=== PATIENT | female | born 1995 | race African-American/Black ===

== ENCOUNTER 2017-09-21 08:21 | Inpatient (IN) ==
[2017-09-21] MEDS ORDERED: ONDANSETRON 4 MG/2 ML VIAL IV PRN ×2 (10:02→17:58)
[2017-09-21] MEDS ORDERED: OXYTOCIN/LR 20 UNIT/1,000 ML BAG IV SCH (10:30)
[2017-09-21] MEDS ORDERED: DEXTROSE 5% LACTATED RINGERS 1,000 ML IV SCH (10:30)
[2017-09-21] MEDS ORDERED: DEXTROSE 50% 25 GM/50 ML VIAL IV PRN ×2 (10:35→17:58)
[2017-09-21] MEDS ORDERED: GLUCAGON 1 MG VIAL IM PRN ×2 (10:35→17:58)
[2017-09-21] MEDS ORDERED: ONDANSETRON 4 MG/2 ML VIAL IV ONE (10:49)
[2017-09-21] MEDS ORDERED: ePHEDrine 50 MG/ML AMP IV PRN (10:49)
[2017-09-21] MEDS ORDERED: PROMETHAZINE 25 MG/1 ML VIAL IM ONE (10:49)
[2017-09-21] MEDS ORDERED: FAMOTIDINE 20 MG/2 ML VIAL IV ONE (10:49)
[2017-09-21] MEDS ORDERED: CITRIC ACID/SODIUM CITRATE 30 ML UDCUP PO ONE (10:49)
[2017-09-21] MEDS ORDERED: diphenhydrAMINE 50 MG/1 ML VIAL IV PRN ×2 (10:49)
[2017-09-21] MEDS ORDERED: hydrOXYzine HCL 25 MG/1 ML VIAL IM PRN (10:49)
[2017-09-21 10:57] LABS: Basophils % 0.2 % (0.0-0.8); Eosinophils # 0.1 10*3/uL (0.0-0.87); Eosinophils % 1.1 % (0.00-10.9); Hematocrit 34.5 VOL% (35.7-47.0); Hemoglobin 11.5 GM/DL (12.0-16.0); Immature Granulocytes % 0.8 %; Immature Granulocytes Absolute 0.08 #; Lymphocytes # 1.9 10*3/uL (1.4-4.0); Lymphocytes % 19.2 % (21.3-54.2); Mean Corpuscular HGB Conc 33.3 GM/DL (32-36); Mean Corpuscular Hemoglobin 29 PG (27-34); Mean Platelet Volume 12.5 FL (9.6-12.0); Monocytes # 0.8 10*3/uL (0.11-0.8); Monocytes % 7.9 % (1.7-12.7); NRBC # 0.02 10*3/uL; Neutrophils % 70.8 % (38.7-73.9); Platelet Count 169 T/CUMM (130-400); Red Blood Count 3.92 MC/CUMM (3.8-5.5); Red Cell Distribution Width 15.1 % (9.3-17.3); White Blood Count 9.9 T/CUMM (4-12)
[2017-09-21] MEDS ORDERED: INSULIN REGULAR 100 UNIT/ML SUBCUT SCH ×2 (11:00→18:30)
[2017-09-21] MEDS ORDERED: fentaNYL 2 MCG/ROPIV 0.2% EPID 150 ML EPIDURAL SCH (11:00)
[2017-09-21 11:17] LABS: Alanine Aminotransferase 13 U/L (13-56); Albumin 2.4 G/DL (3.4-5.0); Alkaline Phosphatase 263 U/L (45-117); Aspartate Amino Transferase 14 U/L (0-37); Bilirubin,Total < 0.39 MG/DL (0.2-1.0); Blood Urea Nitrogen 4 MG/DL (7-18); Calcium 8.4 MG/DL (8.5-10.1); Glucose 152 MG/DL (74-106); Osmolality,Calculated 274.7 MOS/KG (273-304); Potassium 3.9 MMOL/L (3.5-5.1); Sodium 138 MMOL/L (136-145); Total Protein 6.5 G/DL (6.4-8.3)
[2017-09-21] MEDS: LACTATED RINGERS 1,000 ML IV SCH ×2 (11:25→15:10)
[2017-09-21] MEDS ORDERED: LIDOCAINE MPF 2% /EPI 20 ML VIAL ONE (12:06)
[2017-09-21 15:27] LABS: Apearance,Urine CLEAR (Clear); Bacteria,Urine Occasional /HPF (Few); Bilirubin,Urine Negative (Negative); Blood, Urine Negative (Negative); Glucose,Urine (UA) >=500 mg/dL (Negative); Ketones,Urine Negative (Negative); Nitrite,Urine Negative (Negative); Protein,Urine Negative; Urine Color Straw (Yellow); Urine Specific Gravity 1.001 (1.001-1.035); Urine Urobilinogen < 2.0 EU/DL (0.2-1.0); WBC,Urine <1 /HPF (0-6)
[2017-09-21] MEDS ORDERED: miSOPROStol 200 MCG TABLET ONE (15:52)
[2017-09-21] MEDS ORDERED: LIDOCAINE 1% 50 ML VIAL ONE (15:53)
[2017-09-21] MEDS ORDERED: CARBOPROST TROMETHAMINE 250 MCG/ML AMP IM ONE (15:54)
[2017-09-21] MEDS ORDERED: BUTORPHANOL 2 MG/ML VIAL ONE (15:54)
[2017-09-21] MEDS ORDERED: METHYLERGONOVINE 0.2 MG/1 ML AMP ONE (15:54)
[2017-09-21] MEDS ORDERED: BENZOCAINE 20%/MENTHOL 0.5% SPRAY 56 GM CAN TOP PRN (17:58)
[2017-09-21] MEDS ORDERED: HYDROCORTISONE 2.5% RECTAL CREAM 30 GM TUBE TOP PRN (17:58)
[2017-09-21] MEDS ORDERED: ACETAMINOPHEN 325 MG TABLET PO PRN (17:58)
[2017-09-21] MEDS ORDERED: DIPH/TET/ACEL PERT BOOSTER VACCINE 0.5 ML VIAL IM ONE (17:58)
[2017-09-21] MEDS ORDERED: MEASLES/MUMPS/RUBELLA VACCINE 0.5 ML VIAL SUBCUT ONE (17:58)
[2017-09-21] MEDS ORDERED: OXYTOCIN/LR 20 UNIT/1,000 ML BAG IV ONE (17:58)
[2017-09-21] MEDS ORDERED: RHO(D) IMMUNE GLOBULIN 300 MCG SYRINGE IM ONE (17:58)
[2017-09-21] MEDS ORDERED: WITCH HAZEL PADS 100/JAR TOP PRN (17:58)
[2017-09-21] MEDS ORDERED: BISACODYL 10 MG SUPP RECTAL PRN (17:58)
[2017-09-21] MEDS ORDERED: LANOLIN 50% CREAM 0.3 OZ TUBE TOP PRN (17:58)
[2017-09-21] MEDS: IBUPROFEN 800 MG TABLET PO PRN (19:27)
[2017-09-21] MEDS ORDERED: hydrALAZINE 20 MG/1 ML VIAL ONE (19:40)
[2017-09-21] MEDS ORDERED: hydrALAZINE 20 MG/1 ML VIAL IV ONE ×2 (19:44→19:54)
[2017-09-21] MEDS ORDERED: BENZOCAINE/MENTHOL LOZENGE 18/BOX PO PRN (21:33)
[2017-09-21] MEDS: oxyCODONE/ACETAMINOPHEN 5-325 MG TABLET PO PRN (21:50)
[2017-09-21] MEDS: DOCUSATE SODIUM 100 MG CAPSULE PO SCH (21:50)
[2017-09-21] MEDS ORDERED: hydrALAZINE 20 MG/1 ML VIAL IV PRN (23:59)
[2017-09-22 03:46] LABS: Basophils % 0.1 % (0.0-0.8); Eosinophils # 0.1 10*3/uL (0.0-0.87); Eosinophils % 0.5 % (0.00-10.9); Hematocrit 27.8 VOL% (35.7-47.0); Hemoglobin 9.3 GM/DL (12.0-16.0); Immature Granulocytes % 0.5 %; Immature Granulocytes Absolute 0.08 #; Lymphocytes % 13.6 % (21.3-54.2); Mean Corpuscular HGB Conc 33.5 GM/DL (32-36); Mean Corpuscular Hemoglobin 30 PG (27-34); Mean Corpuscular Volume 90.6 FL (87-102); Mean Platelet Volume 13.1 FL (9.6-12.0); Monocytes # 1.1 10*3/uL (0.11-0.8); Monocytes % 7.6 % (1.7-12.7); Neutrophils # 11.6 10*3/uL (1.4-7.4); Neutrophils % 77.7 % (38.7-73.9); Platelet Count 145 T/CUMM (130-400); Red Blood Count 3.07 MC/CUMM (3.8-5.5); Red Cell Distribution Width 15.2 % (9.3-17.3); White Blood Count 14.9 T/CUMM (4-12)
[2017-09-22] MEDS: INSULIN REGULAR 100 UNIT/ML SUBCUT SCH ×4 (04:00→22:17)
[2017-09-22] MEDS: IBUPROFEN 800 MG TABLET PO PRN ×2 (04:32→22:15)
[2017-09-22] MEDS: oxyCODONE/ACETAMINOPHEN 5-325 MG TABLET PO PRN ×3 (04:32→22:16)
[2017-09-22] MEDS: DOCUSATE SODIUM 100 MG CAPSULE PO SCH ×2 (17:17→22:14)
[2017-09-23] MEDS: oxyCODONE/ACETAMINOPHEN 5-325 MG TABLET PO PRN ×2 (04:52→14:22)
[2017-09-23] MEDS: IBUPROFEN 800 MG TABLET PO PRN ×2 (04:52→14:23)
[2017-09-23 07:46] VITALS: BP 141/85
[2017-09-23] MEDS ORDERED: metFORMIN 500 MG TABLET PO SCH (08:00)
[2017-09-23] MEDS: DOCUSATE SODIUM 100 MG CAPSULE PO SCH (08:20)
== END 2017-09-23 15:30 | disposition home or self-care (01) | DRG 560 ==
LOC: N.LDOUT 08:21 → N.LD 08:23 → N.OB 21:10
PROVIDERS: ADMIT Obstetrics & Gynecology; ATTEND Obstetrics & Gynecology

== ENCOUNTER 2020-10-14 10:26 | Inpatient (IN) ==
[2020-10-14] MEDS ORDERED: ceFAZolin 2,000 MG/50 ML DUPLEX IV ONE (10:41)
[2020-10-14] MEDS ORDERED: CITRIC ACID/SODIUM CITRATE 30 ML UDCUP PO ONE (10:41)
[2020-10-14] MEDS ORDERED: FAMOTIDINE 20 MG/2 ML VIAL IV ONE (10:41)
[2020-10-14] MEDS ORDERED: OXYTOCIN/LR 30 UNIT/1,000 ML BAG IV ONE (10:43)
[2020-10-14] MEDS ORDERED: OXYTOCIN 10 UNIT/ML VIAL IM ONE (10:43)
[2020-10-14] MEDS ORDERED: LACTATED RINGERS 1,000 ML IV SCH ×2 (11:00→15:00)
[2020-10-14 11:03] LABS: Basophils % 0.3 % (0.0-0.8); Eosinophils # 0.1 10*3/uL (0.0-0.87); Eosinophils % 0.6 % (0.00-10.9); Hematocrit 35.5 VOL% (35.7-47.0); Hemoglobin 11.4 GM/DL (12.0-16.0); Immature Granulocytes % 1.2 %; Immature Granulocytes Absolute 0.14 #; Lymphocytes # 2.6 10*3/uL (1.4-4.0); Lymphocytes % 22.5 % (21.3-54.2); Mean Corpuscular HGB Conc 32.1 GM/DL (32-36); Mean Corpuscular Volume 88.1 FL (87-102); Mean Platelet Volume 11.1 FL (9.6-12.0); Monocytes % 7.7 % (1.7-12.7); Neutrophils % 67.7 % (38.7-73.9); Platelet Count 237 T/CUMM (130-400); Red Blood Count 4.03 MC/CUMM (3.8-5.5); Red Cell Distribution Width 13.2 % (9.3-17.3); White Blood Count 11.8 T/CUMM (4-12)
[2020-10-14] MEDS ORDERED: ONDANSETRON 4 MG/2 ML VIAL ONE (11:50)
[2020-10-14] MEDS ORDERED: METOCLOPRAMIDE 10 MG/2 ML VIAL ONE (11:50)
[2020-10-14] MEDS ORDERED: BUPIVACAINE SPINAL 0.75% 2 ML AMP SPINAL ONE (11:52)
[2020-10-14] MEDS ORDERED: PHENYLEPHRINE 1 MG/10 ML SYRINGE IV ONE ×2 (13:07→14:31)
[2020-10-14] MEDS ORDERED: ePHEDrine 50 MG/ML VIAL ONE (13:43)
[2020-10-14] MEDS ORDERED: DEXAMETHASONE 4 MG/1 ML VIAL ONE (13:59)
[2020-10-14] MEDS ORDERED: KETOROLAC 30 MG/1 ML VIAL ONE ×2 (13:59→14:30)
[2020-10-14] MEDS ORDERED: DEXTROSE 50% 25 GM/50 ML VIAL IV PRN (14:15)
[2020-10-14] MEDS ORDERED: GLUCAGON 1 MG VIAL IM PRN (14:15)
[2020-10-14 14:21] LABS: Bilirubin,Urine Negative (Negative); Blood, Urine Negative (Negative); Glucose,Urine (UA) Negative (Negative); Ketones,Urine 20 mg/dL (Negative); Mucus,Urine Occasional /LPF (Occasional); Nitrite,Urine Negative (Negative); Protein,Urine Negative; Squamous Epithelial Cell,Urine Occasional /HPF (0-10); Urine Appearance CLEAR (Clear); Urine Color Yellow (Yellow); Urine Specific Gravity 1.015 (1.001-1.035); Urine Urobilinogen < 2.0 EU/DL (0.2-1.0)
[2020-10-14] MEDS ORDERED: ACETAMINOPHEN INJ 1,000 MG/100 ML VIAL IV ONE (14:30)
[2020-10-14] MEDS ORDERED: ACETAMINOPHEN 325 MG TABLET PO PRN (14:36)
[2020-10-14] MEDS ORDERED: RHO(D) IMMUNE GLOBULIN 300 MCG SYRINGE IM ONE (14:36)
[2020-10-14] MEDS ORDERED: ONDANSETRON 4 MG/2 ML VIAL IV PRN (14:36)
[2020-10-14] MEDS ORDERED: MAGNESIUM HYDROXIDE SUSP 30 ML UDCUP PO PRN (14:36)
[2020-10-14] MEDS ORDERED: OXYTOCIN/LR 20 UNIT/1,000 ML BAG IV ONE (14:36)
[2020-10-14 14:51] LABS: Cord Venous Blood HCO3 21.4 MMOL/L; Cord Venous Blood PCO2 58.3 MMHG
[2020-10-14] MEDS ORDERED: INSULIN REGULAR 100 UNIT/ML SUBCUT SCH (18:00)
[2020-10-14] MEDS: ACETAMINOPHEN 500 MG TABLET PO SCH (19:57)
[2020-10-14] MEDS: KETOROLAC 30 MG/1 ML VIAL IV PRN (19:58)
[2020-10-15] MEDS: DOCUSATE SODIUM 100 MG CAPSULE PO SCH ×3 (00:56→21:00)
[2020-10-15] MEDS: KETOROLAC 30 MG/1 ML VIAL IV PRN ×2 (00:56→07:31)
[2020-10-15] MEDS: ACETAMINOPHEN 500 MG TABLET PO SCH (00:56)
[2020-10-15] MEDS ORDERED: INSULIN REGULAR 100 UNIT/ML ONE (01:54)
[2020-10-15] MEDS: INSULIN REGULAR 100 UNIT/ML SUBCUT SCH ×3 (01:56→21:54)
[2020-10-15] MEDS ORDERED: ACETAMINOPHEN 500 MG TABLET PO SCH (07:45)
[2020-10-15] MEDS: MULTIVITAMIN (PRENATAL) TABLET PO SCH (09:37)
[2020-10-15] MEDS: IBUPROFEN 800 MG TABLET PO PRN (13:33)
[2020-10-15] MEDS ORDERED: GLUCAGON 1 MG VIAL IM PRN ×2 (16:44→17:30)
[2020-10-15] MEDS ORDERED: DEXTROSE 50% 25 GM/50 ML VIAL IV PRN ×2 (16:44→17:30)
[2020-10-15] MEDS ORDERED: METOCLOPRAMIDE 10 MG TABLET PO SCH (19:00)
[2020-10-15] MEDS: SIMETHICONE CHEW 80 MG TABLET PO PRN (21:00)
[2020-10-15] MEDS: METOCLOPRAMIDE 10 MG TABLET PO SCH (21:00)
[2020-10-15 23:59] LABS: Basophils % 0.2 % (0.0-0.8); Eosinophils # 0.1 10*3/uL (0.0-0.87); Eosinophils % 0.9 % (0.00-10.9); Hemoglobin 9.5 GM/DL (12.0-16.0); Immature Granulocytes % 0.5 %; Immature Granulocytes Absolute 0.07 #; Lymphocytes # 3.5 10*3/uL (1.4-4.0); Lymphocytes % 27.1 % (21.3-54.2); Mean Corpuscular HGB Conc 31.7 GM/DL (32-36); Mean Corpuscular Volume 89.8 FL (87-102); Mean Platelet Volume 11.6 FL (9.6-12.0); Monocytes % 7.5 % (1.7-12.7); Neutrophils % 63.8 % (38.7-73.9); Platelet Count 226 T/CUMM (130-400); Red Blood Count 3.34 MC/CUMM (3.8-5.5); Red Cell Distribution Width 13.5 % (9.3-17.3); White Blood Count 12.8 T/CUMM (4-12)
[2020-10-16] MEDS: IBUPROFEN 800 MG TABLET PO PRN ×3 (02:20→21:46)
[2020-10-16] MEDS: METOCLOPRAMIDE 10 MG TABLET PO SCH ×2 (05:13→16:23)
[2020-10-16] MEDS: INSULIN REGULAR 100 UNIT/ML SUBCUT SCH ×4 (08:15→21:36)
[2020-10-16] MEDS: MULTIVITAMIN (PRENATAL) TABLET PO SCH (09:06)
[2020-10-16] MEDS: FERROUS SULFATE 325 MG TABLET PO SCH (09:06)
[2020-10-16] MEDS: DOCUSATE SODIUM 100 MG CAPSULE PO SCH ×2 (09:06→21:32)
[2020-10-16] MEDS: SIMETHICONE CHEW 80 MG TABLET PO PRN (21:32)
[2020-10-16] MEDS ORDERED: BISACODYL 10 MG SUPP RECTAL PRN (21:41)
[2020-10-17] MEDS: METOCLOPRAMIDE 10 MG TABLET PO SCH (01:17)
[2020-10-17] MEDS: IBUPROFEN 800 MG TABLET PO PRN ×2 (04:20→11:07)
[2020-10-17] MEDS: SIMETHICONE CHEW 80 MG TABLET PO PRN (04:25)
[2020-10-17] MEDS ORDERED: INSULIN GLARGINE 100 UNIT/ML SUBCUT SCH (09:00)
[2020-10-17] MEDS: FERROUS SULFATE 325 MG TABLET PO SCH (09:02)
[2020-10-17] MEDS: MULTIVITAMIN (PRENATAL) TABLET PO SCH (09:02)
[2020-10-17] MEDS: DOCUSATE SODIUM 100 MG CAPSULE PO SCH (09:02)
[2020-10-17 16:08] VITALS: BP 129/83
== END 2020-10-17 13:48 | disposition home or self-care (01) | DRG 788 ==
LOC: N.LD 10:26 → N.OB 10-15 16:28
PROVIDERS: ADMIT Obstetrics & Gynecology; ATTEND Obstetrics & Gynecology
PROC: LDCSECT (ICD-10-PCS; 2020-10-14 13:30)